=== PATIENT | male | born 1995 ===

== ENCOUNTER 2022-04-19 08:16 | Emergency (ER) | payer SELFPAY ==
[~2022-04-19] VITALS: Ht 167.6 cm; Wt 64.2 kg
[2022-04-19 08:17] VITALS: BP 136/66
== END 2022-04-19 16:49 | disposition left against medical advice (07) ==
LOC: M ED 08:16
DX: Z53.21 Procedure and treatment not carried out due to patient leaving prior to being seen by health care provider (principal)